=== PATIENT | female | born 1960 | race Two or more races ===

== ENCOUNTER → 2024-01-19 | Outpatient (CLI) | payer MEDICAID, SELFPAY ==
--- NOTE | 2024-01-19 11:00 | XR_ITS ---
Examination: Breast ultrasound, unilateral, left complete Date and time of exam: January 19, 2024 1153 hours INDICATIONS: Outside mammogram May 27, 2022 8 mm focal asymmetry upper inner left breast Technique: Real-time meraz scale ultrasonographic imaging performed left breast including all 4 quadrants as well as nipple retroareolar and axillary region. Findings: No cystic or solid mass IMPRESSION: BI-RADS Category 1: Negative study
--- NOTE | 2024-01-19 11:30 | XR_ITS ---
Examination: Diagnostic digital mammography, unilateral, left Computer aided detection 3-D breast Tomosynthesis, unilateral Date and time of exam: January 19, 2024 1134 hours INDICATIONS: Outside mammogram December 27, 2022 8 mm focal asymmetry upper inner left breast Technique: Nonmagnified MLO, CC views of the left breast have been obtained, reconstructed from 3-D Tomosynthesis images. R2 computer aided detection program utilized for evaluation of suspicious masses and/or abnormal calcifications. 3-D Tomosynthesis images obtained. Findings: The breast is heterogeneously dense, which may obscure small masses Focal asymmetry does persist in the inner left breast on the CC view, measuring 8 mm Impression: BI-RADS category 3: Probably benign findings Recommend 1 additional 6 month left mammogram follow-up to document stability of focal 8 mm asymmetry inner left breast on the spot compression CC view today
== END | disposition home or self-care (01) ==
PROVIDERS: Referring Provider Physician Assistant Medical; Visit Provider Physician Assistant Medical
DX: R92.332 Mammographic heterogeneous density, left breast (principal); N64.89 Other specified disorders of breast
CPT/HCPCS: 76641; 77061; 77065; G0279

== ENCOUNTER → 2024-10-08 | Outpatient (CLI) | payer MEDICAID, SELFPAY ==
--- NOTE | 2024-10-08 11:00 | XR_ITS ---
Examination: Breast ultrasound, unilateral, left complete Date and time of exam: October 08, 2024 1134 hours INDICATIONS: Mammogram January 19, 2024 8 mm focal asymmetry inner left breast Technique: Real-time meraz scale ultrasonographic imaging performed left breast including all 4 quadrants as well as nipple retroareolar and axillary region. Findings: No cystic or solid mass IMPRESSION: BI-RADS Category 1: Negative study
--- NOTE | 2024-10-08 11:45 | XR_ITS ---
Examination: Diagnostic digital mammography, unilateral, left Computer aided detection 3-D breast Tomosynthesis, unilateral Date and time of exam: October 08, 2024 1117 hours INDICATIONS: Outside mammogram December 27, 2022 8 mm focal asymmetry upper inner left breast Technique: Nonmagnified MLO, CC views of the left breast have been obtained, reconstructed from 3-D Tomosynthesis images. R2 computer aided detection program utilized for evaluation of suspicious masses and/or abnormal calcifications. 3-D Tomosynthesis images obtained. Findings: The breast is heterogeneously dense, which may obscure small masses Stable focal asymmetry inner left breast No interval suspicious masses Impression: BI-RADS category 2: Benign findings Return to yearly follow-up mammography
== END | disposition home or self-care (01) ==
PROVIDERS: Referring Provider Nurse Practitioner Family; Visit Provider Nurse Practitioner Family
DX: R92.8 Other abnormal and inconclusive findings on diagnostic imaging of breast (principal)
CPT/HCPCS: 76641; 77061; 77065; G0279